=== PATIENT | female | born 1990 | race Caucasian/White ===

== ENCOUNTER 2022-07-19 16:18 | Emergency (ER) | payer OTHER ==
[2022-07-19 16:46] VITALS: BP 151/86; PULSE 83; RESP 20; TEMP 97.5
[2022-07-19] MEDS ORDERED: KETOROLAC 15 MG/ML 1 ML VIAL IM STA (17:01)
[2022-07-19] MEDS ORDERED: ORPHENADRINE 30 MG/ML 2 ML VIAL IM STA (17:02)
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
[2022-07-19] MEDS: MORPHINE SULFATE 4 MG/ML SYRINGE IM STA ×2 (17:34→18:18)
[2022-07-19] MEDS ORDERED: IBUPROFEN 600 MG STARTER PACK 4 TAB BTL PO STA (18:06)
[2022-07-19] MEDS ORDERED: CYCLOBENZAPRINE 10MG STARTER 3 TAB BTL PO STA (18:06)
[2022-07-19] MEDS ORDERED: ACET/COD 300 MG/30 MG STARTER PACK 6 TAB BTL PO STA (18:06)
== END 2022-07-19 18:48 | disposition home or self-care (01) ==
LOC: EC 16:18
DX: S39.012A Strain of muscle, fascia and tendon of lower back, initial encounter (principal); X50.9XXA Other and unspecified overexertion or strenuous movements or postures, initial encounter
CPT/HCPCS: 99284; 96372 ×3; J2270; J2360; J1885